=== PATIENT | female | born 1955 | race Caucasian/White ===

== ENCOUNTER → 2016-05-23 | Outpatient (CLI) | payer OTHER ==
--- NOTE | 2016-05-25 09:02 | MM ---
Reason for exam: screening (asymptomatic). Last mammogram was performed 1 year ago. History: Patient is postmenopausal. Took hormonal contraceptives for 1 year beginning at age 18. Physical Findings: A clinical breast exam by your physician is recommended on an annual basis and results should be correlated with mammographic findings. MG 3D Screening Mammo W/Cad Bilateral CC and MLO view(s) were taken. Prior study comparison: May 21, 2015, bilateral MG 3d screening mammo w/cad. April 25, 2014, bilateral MG screening mammo w CAD. There are scattered fibroglandular densities. No significant changes when compared with prior studies. ASSESSMENT: Benign, BI-RAD 2 RECOMMENDATION: Routine screening mammogram of both breasts in 1 year.
== END | disposition home or self-care (01) ==
LOC: RADMAMWWP 12:52
PROVIDERS: ATTEND Family Medicine
DX: Z12.31 Encounter for screening mammogram for malignant neoplasm of breast (principal)
CPT/HCPCS: 77063; G0202

== ENCOUNTER → 2017-05-24 | Outpatient (CLI) | payer OTHER ==
--- NOTE | 2017-05-24 10:13 | CTL ---
EXAMINATION TYPE: CT Low Dose Lung DATE OF EXAM ORDERED: 05/24/2017 HISTORY: Long-term tobacco use. Lung cancer screening CT DLP: 75.[address] CTDI: 2.3 mGy Automated exposure control for dose reduction was used. SCREENING VISIT: Initial study COMPARISON: CT chest November 13, 2013 TECHNIQUE: Low dose computed tomography scan was performed through the chest at 1 mm thick sections a nd reconstructed images in the coronal plane at [address] DIAGNOSTIC QUALITY: Satisfactory FINDINGS: LUNG NODULES: Present, detailed below: Stable 2 mm nodule just anterior to right major fissure axial image 113. Enlarging 4 x 3 mm nodule right lower lobe axial image 186 Stable 2 mm calcified nodule anteriorly left upper lobe axial image 60. No suspicious greater than 5 mm noncalcified nodules. LUNGS: COPD: Severity: Mild to Moderate Fibrosis: Severity: Mild scattered linear fibrosis Lymph nodes: Prominent but subcentimeter paratracheal and AP window lymph nodes. No greater than 1 cm adenopathy. Other findings: No additional significant findings seen BILATERAL PLEURAL SPACE: Effusion: None Calcification: None Thickening: None Pneumothorax: None HEART: Heart Size: Normal Coronary calcification: Moderate three-vessel blood post CABG changes with mediastinal clips and ster nal wires is noted Pericardial effusion: None OTHER FINDINGS: Upper abdomen: No significant abnormality is seen. Bony thorax: Moderate multilevel spurring in thoracic spine is seen. Supraclavicular region: No significant abnormality is seen. Other: No significant abnormality is seen. IMPRESSION: A few scattered small micronodules measuring up to 4 mm in size. FOLLOW UP CT CHEST RECOMMENDATION: Annual low-dose lung screening CT CT LUNG RAD: Lung-Rad 2 Benign Appearance or Behavior
--- NOTE | 2017-05-24 16:25 | BD ---
EXAMINATION TYPE: MG DEXA axial skeleton. DATE OF EXAM: 05/24/2017 COMPARISON: NONE CLINICAL HISTORY: 62-year-old female personal history of tobacco use Height: 5 FT 5 1/2 IN Weight: 190 FRAX RISK QUESTIONS: Alcohol (3 or more units per day): NO Family History (Parent hip fracture): NO Glucocorticoids (More than 3mos): NO (Ex: prednisone, prednisolone, methylprednisolone, dexamethasone, and hydrocortisone). History of Fracture in Adulthood: YES Secondary Osteoporosis: 1. Type 1 Diabetes: NO 2. Hyperthyroidism: NO 3. Menopause before 46: PART ST AGE 36 4. Malnutrition: NO 5. Chronic liver disease: NO Rheumatoid Arthritis: NO Current Tobacco Use: YES RISK FACTORS HISTORY OF: History of Wrist Fracture: RT WRIST When: 5 YEARS AGO Surgery to Spine/Hip(right/left)/Wrist (right/left): RT WRIST When: 5 YEARS AGO Active: NO Postmenopausal woman: PART [facility] AGE 36 Lost more than 2 inches in height since high school: YES MEDICATIONS: Additional Medications: NORCO, ASPIRIN, XANAX, Additional History: POOR HISTORIAN IN [facility] TO MEDICATIONS EXAM MEASUREMENTS: Bone mineral densitometry was performed using the [employer] System. Bone mineral density as measured about the Lumbar spine is: ----- L1-L4(G/cm2): 1.010 T Score Values are as follows: ----- L2: -1.4 ----- L3: -1.7 ----- L4: -1.4 ----- L1-L4: -1.4 BASELINE Bone mineral density about the R hip (g/cm2): 0.767 Bone mineral density about the L hip (g/cm2): 0.779 T Score values are as follows: -----R Neck: -2.0 -----L Neck: -1.9 -----R Total: -1.5 -----L Total: -1.9 BASELINE IMPRESSION: Osteopenia (T Score between -2.5 and -1 as noted by T score values There is slightly increased risk of fracture and the patient may be considered for treatment. Re-Screen 2-5 years. NOTE: T-SCORE=SD OF THE YOUNG ADULT MEAN.
--- NOTE | 2017-05-25 13:32 | MM ---
Reason for exam: screening (asymptomatic). Last mammogram was performed 1 year ago. History: Patient is postmenopausal. Took hormonal contraceptives for 1 year beginning at age 18. Physical Findings: A clinical breast exam by your physician is recommended on an annual basis and results should be correlated with mammographic findings. MG 3D Screening Mammo W/Cad Bilateral CC and MLO view(s) were taken. Prior study comparison: May 23, 2016, bilateral MG 3d screening mammo w/cad. May 21, 2015, bilateral MG 3d screening mammo w/cad. There are scattered fibroglandular densities. No significant changes when compared with prior studies. ASSESSMENT: Negative, BI-RAD 1 RECOMMENDATION: Routine screening mammogram of both breasts in 1 year.
== END | disposition home or self-care (01) ==
LOC: RADBDWWP 08:10
PROVIDERS: ATTEND Family Medicine
DX: Z12.31 Encounter for screening mammogram for malignant neoplasm of breast (principal); M85.80 Other specified disorders of bone density and structure, unspecified site; N95.1 Menopausal and female climacteric states; R91.8 Other nonspecific abnormal finding of lung field; Z87.891 Personal history of nicotine dependence
CPT/HCPCS: 77080; 77067; 77063; G0297

== ENCOUNTER → 2017-09-27 | Outpatient (CLI) | payer OTHER ==
--- NOTE | 2017-09-27 23:57 | MR ---
EXAMINATION TYPE: MR brain wo con DATE OF EXAM: 09/27/2017 COMPARISON: NONE HISTORY: Ataxia, Memory loss Standard multiplanar, multisequence MRI departmental protocol Multiplanar, multisequence images of the brain were acquired. Diffusion weighted imaging was performe d. FINDINGS: Ventricles and sulci appear normal for age. There is no mass effect nor midline shift. Ther e is no sign of intracranial hemorrhage. There is no evidence of cortical infarct. The brainstem appe ars normal. There are multiple scattered white matter high signal foci on the FLAIR and T2 images at the conley-white matter junction of both cerebral hemispheres. These are more notable in the left tempo ral lobe right parietal lobe. The total number is less than 25 and these measure up to 8 mm. There is no evidence of a sellar mass. IMPRESSION: Numerous white matter lesions. I would consider both demyelinating disease and chronic small vessel i schemia. No evidence of cortical infarct.
== END | disposition home or self-care (01) ==
LOC: RADMRIMAIN 19:43
PROVIDERS: ATTEND Psychiatry & Neurology Neurology
DX: G93.9 Disorder of brain, unspecified (principal); G56.03 Carpal tunnel syndrome, bilateral upper limbs
CPT/HCPCS: 70551

== ENCOUNTER → 2020-03-24 | Outpatient (CLI) | payer OTHER ==
--- NOTE | 2020-03-25 13:32 | MM ---
Reason for exam: screening (asymptomatic). Last mammogram was performed 2 years and 10 months ago. History: Patient is postmenopausal. Took hormonal contraceptives for 1 year beginning at age 18. Physical Findings: A clinical breast exam by your physician is recommended on an annual basis and results should be correlated with mammographic findings. MG 3D Screening Mammo W/Cad Bilateral CC and MLO view(s) were taken. Prior study comparison: May 24, 2017, bilateral MG 3d screening mammo w/cad. May 23, 2016, bilateral MG 3d screening mammo w/cad. There are scattered fibroglandular densities. No significant changes when compared with prior studies. ASSESSMENT: Negative, BI-RAD 1 RECOMMENDATION: Routine screening mammogram of both breasts in 1 year.
== END | disposition home or self-care (01) ==
LOC: RADMAMWWP 16:33
PROVIDERS: ATTEND Family Medicine
DX: Z12.31 Encounter for screening mammogram for malignant neoplasm of breast (principal)
CPT/HCPCS: 77063; 77067

== ENCOUNTER → 2021-06-11 | Outpatient (CLI) | payer MEDICARE, OTHER ==
--- NOTE | 2021-06-11 14:55 | BD ---
EXAMINATION TYPE: Axial Bone Density DATE OF EXAM: 06/11/2021 COMPARISON: 05/24/2017 CLINICAL HISTORY: Height: 65.2 IN Weight: 211 LBS FRAX RISK QUESTIONS: History of Fracture in Adulthood: RT WRIST FX AGE 58 Secondary Osteoporosis: 3. Menopause before 45: PARTIAL [facility] AGE 36 Current Tobacco Use: YES RISK FACTORS HISTORY OF: History of Wrist Fracture: RT WRIST AGE 58 Surgery to Wrist (right): YES AGE 58 Active: YES Diet low in dairy products/other sources of calcium: YES Postmenopausal woman: PARTIAL HYST AGE 36 Lost more than 2 inches in height since high school: YES 04/25" MEDICATIONS: Additional Medications: ASPIRIN, EXAM MEASUREMENTS: Bone mineral densitometry was performed using the [employer] System. Bone mineral density as measured about the Lumbar spine is: ----- L1-L4(G/cm2): 1.042 T Score Values are as follows: ----- L2: -0.7 ----- L3: -1.3 ----- L4: -1.9 ----- L1-L4: -1.1 Bone mineral density has: Increased 2.1% since study of: 05/24/2017 Bone mineral density about the R hip (g/cm2): 0.695 Bone mineral density about the L hip (g/cm2): 0.702 T Score values are as follows: -----R Neck: -2.5 -----L Neck: -2.4 -----R Total: -1.9 -----L Total: -2.1 Bone mineral density has: Decreased -4.5% since study of: IMPRESSION: Osteoporosis NOTE: T-SCORE=SD OF THE YOUNG ADULT MEAN.
--- NOTE | 2021-06-14 14:18 | MM ---
Reason for exam: screening (asymptomatic). Last mammogram was performed 1 year and 3 months ago. History: Patient is postmenopausal. Took hormonal contraceptives for 1 year beginning at age 18. Physical Findings: A clinical breast exam by your physician is recommended on an annual basis and results should be correlated with mammographic findings. MG 3D Screening Mammo W/Cad Bilateral CC and MLO view(s) were taken. Prior study comparison: March 24, 2020, bilateral MG 3d screening mammo w/cad. May 24, 2017, bilateral MG 3d screening mammo w/cad. There are scattered fibroglandular densities. No significant changes when compared with prior studies. ASSESSMENT: Negative, BI-RAD 1 RECOMMENDATION: Routine screening mammogram of both breasts in 1 year.
== END | disposition home or self-care (01) ==
LOC: RADBDWWP 13:35
PROVIDERS: ATTEND Family Medicine
DX: Z12.31 Encounter for screening mammogram for malignant neoplasm of breast (principal); M81.0 Age-related osteoporosis without current pathological fracture; Z78.0 Asymptomatic menopausal state
CPT/HCPCS: 77063; 77067; 77080

== ENCOUNTER → 2022-08-09 | Outpatient (CLI) | payer MEDICARE, OTHER ==
--- NOTE | 2022-08-10 11:55 | MR ---
EXAMINATION TYPE: MR brain wo/w con DATE OF EXAM: 08/09/2022 5:05 PM CLINICAL INDICATION:Female, 67 years old with history of R41.3 MEMORY LOSS; Memory loss COMPARISON: 09/27/2017 TECHNIQUE: Multi planar, multi sequence imaging was performed through the brain including: T1, T2, In version recovery, susceptibility weighted imaging and gradient echo imaging and Diffusion weighted im aging. The patient was then given intravenous contrast and multi planar, T1 fat-saturation images wer e obtained. IV Contrast: 10 cc Gadavist FINDINGS: Scattered white matter changes are seen throughout the brain may have mildly progressed from prior. E xample includes right periventricular lesion measuring 5.5 mm previously 2.6 mm more extensive white matter changes in the right temporal lobe best appreciated on series 501 image 17, 18, 19. The , vent ricular system, basal cisterns appear unremarkable. Diffusion-weighted imaging shows no evidence of r estricted diffusion to suggest acute/subacute infarct. Intracranial arterial flow voids are maintaine d. Midline structures show no abnormality. The susceptibility weighted images do not reveal any evide nce for micro-hemorrhage. After administration of gadolinium, no abnormal enhancement is seen. The bone marrow signal is within normal limits. Paranasal sinuses and mastoid air cells: No significant paranasal sinus disease. Visualized orbits: Orbital contents are intact. IMPRESSION: 1. No evidence of intracranial mass, acute/subacute infarct, or abnormal enhancement. 2. Progression of nonspecific white matter changes, no evidence of active demyelination. Likely relat ed to small vessel ischemic disease
== END | disposition home or self-care (01) ==
LOC: RADMRIMAIN 16:08
PROVIDERS: ATTEND Psychiatry & Neurology Neurology
DX: R90.82 White matter disease, unspecified (principal); R41.3 Other amnesia
CPT/HCPCS: 70553; A9585

== ENCOUNTER → 2022-08-11 | Outpatient (CLI) | payer MEDICARE, OTHER ==
[2022-08-11 21:47] LABS: T4, Free (Free Thyroxine) 1.2 ng/dL (0.800-1.800)
== END | disposition home or self-care (01) ==
LOC: LABWHC1 13:22
PROVIDERS: ATTEND Psychiatry & Neurology Neurology
DX: R41.3 Other amnesia (principal); Z79.899 Other long term (current) drug therapy
CPT/HCPCS: 36415; 82306; 82607; 84439; 84443

== ENCOUNTER → 2023-06-02 | Outpatient (CLI) | payer MEDICARE, OTHER ==
[2023-06-02 18:52] LABS: ALT 21 U/L (8-44); AST 25 U/L (13-35); Chol/HDL Ratio 4.68 Ratio; LDL Cholesterol,Calculated 150.3 mg/dL (0.0-131.0)
== END | disposition home or self-care (01) ==
LOC: LABWHC1 13:07
PROVIDERS: ATTEND Internal Medicine
DX: E78.2 Mixed hyperlipidemia (principal)
CPT/HCPCS: 36415; 80061; 84450; 84460

== ENCOUNTER 2023-06-05 08:40 | Day surgery (SDC) | payer MEDICARE, OTHER ==
[2023-06-02 09:00] VITALS: BMI 31.9
[~2023-06-05 08:40] MED LIST: ALPRAZolam 0.25 MG TAB PO PRN; ALPRAZolam 0.5 MG TAB PO PRN; ASPIRIN 325 MG TAB PO STA; HEPARIN SODIUM,PORCINE (1 ML) 2,500 UNIT in SODIUM CHLORIDE 0.9% 250 ML IRRIGATION PRN; HEPARIN SODIUM,PORCINE 10,000 UNIT in SODIUM CHLORIDE 0.9% 1,000 ML IRRIGATION PRN; NITROGLYCERIN SL TABS 0.4 MG TAB SUBLINGUAL PRN; SODIUM CHLORIDE 0.9% 1,000 ML in EMPTY BAG 1 BAG IV SCH
[2023-06-05] MEDS: SODIUM CHLORIDE 0.9% 1,000 ML IV ONE (09:04)
[2023-06-05 09:33] VITALS: RESP 16; TEMP 98.9
[2023-06-05 09:34] LABS: Basophils % (A) 1 %; Eosinophils # (A) 0.1 k/uL (0-0.7); Eosinophils % (A) 1 %; HCT 45.7 % (34.0-46.0); HGB 14.6 gm/dL (11.4-16.0); Lymphocytes # (A) 1.6 k/uL (1.0-4.8); Lymphocytes % (A) 24 %; MCH 29.6 pg (25.0-35.0); MCV 92.3 fL (80.0-100.0); Mean Platelet Volume 7.2; Monocytes # (A) 0.4 k/uL (0-1.0); Monocytes % (A) 6 %; Neutrophils # (A) 4.4 k/uL (1.3-7.7); Neutrophils % (A) 66 %; Platelet Count 221 k/uL (150-450); RBC 4.95 m/uL (3.80-5.40); RDW 13.7 % (11.5-15.5); WBC 6.6 k/uL (3.8-10.6)
[2023-06-05 10:17] LABS: African American GFR (CKD) >90 (>60 ml/min/1.73 sqM); Anion Gap 5 mmol/L; Blood Urea Nitrogen 12 mg/dL (7-17); Calcium 8.4 mg/dL (8.4-10.2); Carbon Dioxide 29 mmol/L (22-30); Chloride 105 mmol/L (98-107); Glucose 92 mg/dL (74-99); Non-African American GFR(CKD) 89 (>60 ml/min/1.73 sqM); Sodium 139 mmol/L (137-145)
[2023-06-05] MEDS ORDERED: fentaNYL (PF) 50 MCG/ML 2 ML AMP ONE (10:44)
[2023-06-05] MEDS ORDERED: LIDOCAINE 1% INJ 10MG/ML (20 ML MDV) ONE (10:44)
[2023-06-05] MEDS ORDERED: VERAPAMIL 2.5 MG/ML 2 ML AMP ONE (10:44)
[2023-06-05] MEDS: fentaNYL (PF) 50 MCG/ML 2 ML AMP IVP ONE (10:53)
[2023-06-05] MEDS: MIDAZOLAM 2 MG/2 ML VIAL IVP ONE (10:53)
[2023-06-05] MEDS: LIDOCAINE 1% INJ 10MG/ML (20 ML MDV) SQ ONE (10:55)
[2023-06-05] MEDS: VERAPAMIL SYRINGE (5 MG/10 ML) INTRAARTER ONE (10:57)
[2023-06-05] MEDS: HEPARIN SODIUM 1,000 UN/ML (10ML VL) IVP ONE (11:00)
[2023-06-05] MEDS: IOPAMIDOL-370 100ML BTL INJ ONE (11:09)
--- NOTE | 2023-06-05 11:21 | P.CARDCATH ---
Description of Procedure: PROCEDURES PERFORMED: Left heart catheterization, bilateral coronary angiography, CAMPOVERDE to LAD angiography, ultrasound guided arterial access INDICATION: Abnormal stress test CONSENT:I have discussed the risks, benefits and alternative therapies for the above-mentioned procedure and for both sedation/analgesia as well as necessary b lood product administration, if indicated, as they pertain to this patient. The patient has indicated understanding and acceptance of the risks and procedures discussed. PROCEDURE: After the risks, benefits and alternatives of the above mentioned procedure explained in detail with the patient, informed consent was obtained. Patient was taken to the catheterization lab and prepped and draped in usual fashion. Ultrasound guidance was used to assess for arterial access. 1% lidocaine was used to anesthetize the left radial artery. A 6-Bangladeshi sheath was placed in the left radial artery using modified Seldinger technique and ultrasound guidance. Left coronary angiography was performed with a 5-Bangladeshi JL 4.0 catheter and right coronary angiography was performed with a 5-Bangladeshi FR4 catheter in various views. A 5-Bangladeshi FR4 catheter was inserted into the left ventricle and pressure measurements were obtained. CAMPOVERDE to LAD angiography was performed with a 5-Bangladeshi SR 4 catheter. The left radial sheath was removed and a TR band was placed with hemostasis achieved. The patient tolerated the procedure well. Patient was transported back to the post catheterization holding area in stable condition. Conscious Sedation: Patient was monitored under the direct supervision of myself for conscious sedation using Versed and fentanyl for a total duration of 15 minutes HEMODYNAMICS: Aorta: 137/68 ANDREW: 134/2, LVEDP 5 SELECTIVE CORONARY ARTERIOGRAPHY: LEFT MAIN: The left main is a large caliber vessel which bifurcates into the LAD and circumflex. There is no significant stenosis. LEFT ANTERIOR DESCENDING CORONARY ARTERY: LAD is a large caliber vessel which wraps around to the apex. There proximal LAD 10% stenosis then leads to a small to moderate caliber diagonal 1 branch with 20th 30% diagonal 1 stenosis. The mid LAD has a 100% stenosis after the diagonal branch takeoff. LEFT CIRCUMFLEX CORONARY ARTERY: Left circumflex is a moderate caliber vessel with mild 20-30% stenosis. RIGHT CORONARY ARTERY: The right coronary artery is a large caliber vessel which gives off a PDA and PLV branch and is the dominant vessel. There is diffuse mild 20-30% stenosis CAMPOVERDE to LAD: Widely patent FINAL IMPRESSION: 1. CAD as described above with 100% mid LAD, 20-30% circumflex, 20-30% RCA stenosis 2. Patent CAMPOVERDE to LAD 3. Low normal left sided filling pressures PLAN: 1. Aggressive risk factor modification per most recent ACC/AHA guidelines. 2. Consider decreasing antianginal medications. Consider lowering diuretics with a low normal LVEDP
[2023-06-05 17:00] VITALS: BP 107/65; PULSE 58
== END 2023-06-05 14:55 | disposition home or self-care (01) ==
LOC: CATHCVL 08:40
PROVIDERS: ATTEND Internal Medicine
DX: I25.10 Atherosclerotic heart disease of native coronary artery without angina pectoris (principal); E78.5 Hyperlipidemia, unspecified; Z88.1 Allergy status to other antibiotic agents; Z88.0 Allergy status to penicillin; Z88.8 Allergy status to other drugs, medicaments and biological substances; Z87.891 Personal history of nicotine dependence; Z79.82 Long term (current) use of aspirin; Z79.899 Other long term (current) drug therapy
CPT/HCPCS: 93459; 76937; 80048; 85025; 99152; C1769; C1894; J2250; J2001; J3010; J1644; Q9967

== ENCOUNTER → 2023-07-13 | Outpatient (CLI) | payer MEDICARE, OTHER ==
--- NOTE | 2023-07-14 12:50 | BD ---
EXAMINATION TYPE: Axial Bone Density DATE OF EXAM: 07/13/2023 CLINICAL HISTORY: 68 years old Female. ICD-10 CODE: M81.0 OSTEOPOROSIS Nuclear Medicine Study in the last 2 weeks: Barium Study in the last week: : Height: Weight: FRAX RISK QUESTIONS: History of Fracture in Adulthood: yes Secondary Osteoporosis: 3. Menopause before 45: yes Current Tobacco Use: yes RISK FACTORS HISTORY OF: History of Wrist Fracture: yes When: age 58 Surgery to Spine/Hip(right/left)/Wrist (right/left): yes, right wrist MEDICATIONS: EXAM MEASUREMENTS: Bone mineral densitometry was performed using the [employer] System. Bone mineral density as measured about the Lumbar spine is: ----- L1-L4(G/cm2): 1.058 T Score Values are as follows: ----- L1: -0.7 ----- L2: -0.7 ----- L3: -1.1 ----- L4: -1.5 ----- L1-L4: -1.0 Z Score Values are as follows: ----- L1: -0.2 ----- L2: -0.2 ----- L3: -0.6 ----- L4: -1.0 ----- L1-L4: -0.5 Bone mineral density has: Increased 1.5% since study of: 06-11-21 Bone mineral density about the R hip (g/cm2): 0.775 Bone mineral density about the L hip (g/cm2): 0.727 T Score values are as follows: -----R Neck: -2.3 -----L Neck: -2.8 -----R Total: -1.8 -----L Total: -2.2 Z Score values are as follows: -----R Neck: -1.5 -----L Neck: -2.0 -----R Total: -1.3 -----L Total: -1.7 Bone mineral density has: Decreased -0.8% since study of: 06-11-21 FRAX%s: The graph provided illustrates a 25.5% chance for a major osteoporotic fx and a 10.1% chance for the hips probability for fx in 10 years time. IMPRESSION: Osteoporosis (T Score less than -2.5). There is increased fracture risk and therapy is usually indicated based on age. Re-Screen 1-2 years. NOTE: T-SCORE=SD OF THE YOUNG ADULT MEAN.
--- NOTE | 2023-07-14 13:14 | MM ---
Reason for Exam: Screening (asymptomatic). Last mammogram was performed 1 year(s) and 1 month(s) ago. Patient History: Menarche at age 13. First Full-Term at age 18. Hysterectomy at age 36. Postmenopausal. Patient has history of breast feeding. Hormonal Contraceptives, starting at age 18 for 1 year. Risk Values: Lola 5 year model risk: 1.2%. NCI Lifetime model risk: 4.2%. Prior Study Comparison: 03/24/2020 Bilateral Screening Mammogram, [facility]. 06/11/2021 Bilateral Screening Mammogram, [facility]. 06/13/2022 Bilateral MG 3D screening mammo w/cad, [facility]. Tissue Density: The breasts are almost entirely fatty. Findings: Analyzed By CAD. Right breast: There is no suspicious group of microcalcifications or new suspicious mass. Left breast: There is no suspicious group of microcalcifications or new suspicious mass. There is no suspicious group of microcalcifications or new suspicious mass. Overall Assessment: Negative, BI-RAD 1 Management: Screening Mammogram of both breasts in [address] [facility] will attempt to contact patient to return for supplemental views and ultrasound if indicated. Patient should continue monthly self-breast exams. A clinical breast exam by your physician is recommended on an annual basis. This exam should not preclude additional follow-up of suspicious palpable abnormalities. Note on Lola scores and lifetime risk: 1. A Lola score greater than 3% is considered moderate risk. If this is the case, consider specialist referral to assess eligibility for a risk reducing agent. 2. If overall lifetime risk for the development of breast cancer is 20% or higher, the patient may qualify for future screening with alternating mammogram and breast MRI. Electronically signed and approved by: Ric Gilliland DO
== END | disposition home or self-care (01) ==
LOC: RADBDWWP 11:14
PROVIDERS: ATTEND Family Medicine
DX: Z12.31 Encounter for screening mammogram for malignant neoplasm of breast (principal); M85.89 Other specified disorders of bone density and structure, multiple sites; M81.0 Age-related osteoporosis without current pathological fracture; Z78.0 Asymptomatic menopausal state
CPT/HCPCS: 77063; 77067; 77080

== ENCOUNTER → 2023-07-18 | Outpatient (CLI) | payer MEDICARE, OTHER ==
[2023-07-18 18:17] LABS: Basophils # (A) 0.04 X 10*3/uL (0.00-0.10); Basophils % (A) 0.7 %; Eosinophils # (A) 0.09 X 10*3/uL (0.04-0.35); Eosinophils % (A) 1.5 %; HCT 42.6 % (37.2-46.3); HGB 13.5 g/dL (12.0-15.0); Lymphocytes # (A) 1.77 X 10*3/uL (0.90-5.00); Lymphocytes % (A) 30.1 %; MCH 29.3 pg (27.0-32.0); MCHC 31.7 g/dL (32.0-37.0); MCV 92.6 FL (80.0-97.0); Mean Platelet Volume 9.5 FL (9.5-12.2); Monocytes # (A) 0.47 X 10*3/uL (0.20-1.00); NRBC Per 100 WBC 0 X 10*3/uL (0.00-0.01); Neutrophils % (A) 59.4 %; Platelet Count 227 X 10*3/uL (140-440); RDW 14.4 % (11.5-14.5); WBC 5.89 X 10*3/uL (4.50-10.00)
[2023-07-18 18:42] LABS: ALT 10 U/L (8-44); AST 12 U/L (13-35); Alkaline Phosphatase 86 U/L (41-126); BUN/Creat Ratio 17.14 Ratio (12.00-20.00); Calcium 8.9 mg/dL (8.7-10.3); Carbon Dioxide 29.6 mmol/L (21.6-31.8); Chloride 99 mmol/L (96-109); Chol/HDL Ratio 4.11 Ratio; Glucose 89 mg/dL (70-110); LDL Cholesterol,Calculated 122.1 mg/dL (0.0-131.0); Potassium 4.4 mmol/L (3.5-5.5); Sodium 139 mmol/L (135-145); T4, Free (Free Thyroxine) 1.18 ng/dL (0.80-1.80); Total Bilirubin 0.2 mg/dL (0.3-1.2)
== END | disposition home or self-care (01) ==
LOC: LABWHC1 14:19
PROVIDERS: ATTEND Family Medicine
DX: Z00.00 Encounter for general adult medical examination without abnormal findings (principal)
CPT/HCPCS: 36415; 80053; 80061; 84439; 84443; 85025

== ENCOUNTER 2024-02-06 10:21 | Day surgery (SDC) | payer MEDICARE, OTHER ==
[2024-02-06] MEDS ORDERED: LACTATED RINGERS 1,000 ML IV SCH (10:32)
[2024-02-06 10:55] VITALS: TEMP 98.2
[2024-02-06] MEDS: LACTATED RINGERS 1,000 ML IV SCH (11:00)
[2024-02-06] MEDS: IPRATROPIUM-ALBUTEROL 3 ML NEB INHALATION STA (11:08)
[2024-02-06] MEDS ORDERED: PROPOFOL 10 MG/ML 20 ML VIAL IV ONE (12:06)
--- NOTE | 2024-02-06 12:38 | P.PCN ---
Date of Procedure: 02/06/24 Procedure(s) Performed: BRIEF HISTORY: Patient is a 68-year-old pleasant white female scheduled for an elective colonoscopy as a part of for colon cancer. PROCEDURE PERFORMED: Colonoscopy with biopsy. PREOPERATIVE DIAGNOSIS: Screening for colon cancer. IV sedation per Anesthesia. PROCEDURE: After informed consent was obtained, the patient, was brought into the endoscopy unit. IV sedation was administered by Anesthesia under continuous monitoring. Digital rectal examination was normal. Initially the Olympus CF-160 flexible video colonoscope was then inserted in the rectum, gradually advanced into the sigmoid colon and further advancement was not possible. The scope was removed and a. Colonoscopy then introduced into the rectum and was gradually advanced into the cecum without any difficulty. Careful examination was performed as the scope was gradually being withdrawn. Ileocecal valve and the appendiceal orifice were visualized and appeared normal. Prep was excellent. Mucosa of the cecum, ascending colon, transverse colon, descending colon, sigmoid colon, and rectum appeared normal. Scattered sigmoid diverticulosis. There were 2 small 3 mm polyps in the distal rectum that were removed by cold biopsy. Retroflexion was performed in the rectum and no lesions were seen. The patient tolerated the procedure well. IMPRESSION: 3 mm x 2 distal rectal polyp status post cold biopsy Scattered sigmoid diverticulosis RECOMMENDATIONS: Findings of this examination were discussed with the patient as well as the family.. Advised to follow-up with the biopsy results. If the biopsy reveals adenoma she can have repeat colonoscopy in 5 years
[2024-02-06 12:43] VITALS: RESP 16
[2024-02-06 13:01] VITALS: BP 157/81; PULSE 58
== END 2024-02-06 13:24 | disposition home or self-care (01) ==
LOC: ORWHC2ENDO 10:21
PROVIDERS: ATTEND Internal Medicine Gastroenterology
DX: Z12.11 Encounter for screening for malignant neoplasm of colon
CPT/HCPCS: 45380; 88305

== ENCOUNTER → 2024-07-10 | Outpatient (CLI) | payer MEDICARE, OTHER ==
[2024-07-10 13:24] LABS: ALT 11 U/L (4-34); AST 21 U/L (14-36); African American GFR (CKD) >90 (>60 ml/min/1.73 sqM); Albumin 3.8 g/dL (3.5-5.0); Albumin/Globulin Ratio 1.5; Alkaline Phosphatase 84 U/L (38-126); Anion Gap 4 mmol/L; Blood Urea Nitrogen 11 mg/dL (7-17); Carbon Dioxide 35 mmol/L (22-30); Chloride 100 mmol/L (98-107); Globulin 2.5 g/dL; Glucose 93 mg/dL (74-99); Non-African American GFR(CKD) 87 (>60 ml/min/1.73 sqM); Sodium 139 mmol/L (137-145); Total Bilirubin 0.5 mg/dL (0.2-1.3); Total Protein 6.3 g/dL (6.3-8.2)
--- NOTE | 2024-07-10 15:21 | CT ---
EXAMINATION TYPE: CT abdomen pelvis w con CT DLP: 1556.6 mGycm, Automated exposure control for dose reduction was used. DATE OF EXAM: 07/10/2024 3:03 PM COMPARISON: CT Abdomen 12/27/2012, CT abdomen and pelvis 02/26/2010 CLINICAL INDICATION:Female, 69 years old with history of K56.609 UNSPEC INESTINAL OBSTRUCTION; abdomi nal/pelvic pain and swelling TECHNIQUE: Standard CT of the abdomen and pelvis following the administration of 100 cc of Isovue 3 00 IV contrast material and oral contrast. Coronal and sagittal reformats were performed. FINDINGS: LOWER CHEST: No significant findings. ABDOMEN LIVER: Unremarkable GALLBLADDER AND BILE DUCTS: The gallbladder is surgically absent. No biliary ductal dilatation. PANCREAS: Unremarkable. SPLEEN: Unremarkable. ADRENAL GLANDS: Unremarkable. KIDNEYS AND URETERS: No evidence of hydronephrosis or renal calculus. The kidneys enhance symmetrical ly. Contrast is demonstrated within both collecting systems on the delayed phase. PELVIS BLADDER: Unremarkable REPRODUCTIVE: The uterus is surgically absent. ABDOMEN & PELVIS STOMACH AND BOWEL: Couple of subcentimeter suggested lipomas within the duodenum.Scattered distal col onic diverticulosis without evidence for acute diverticulitis. No focal bowel wall thickening or surr ounding inflammatory changes. The appendix is within normal limits. Enteric contrast reaches the ileo cecal junction No evidence of bowel obstruction. PERITONEUM: No evidence of pneumoperitoneum or free fluid. VASCULATURE: Mild atherosclerotic calcifications are present throughout the abdominal aorta and its b ranches. Infrarenal abdominal aortic aneurysm measuring 3.6 x 3.1 cm (series 3, image 42). MUSCULOSKELETAL: No acute osseous abnormalities. Grade 1 anterolisthesis of L4 on L5 without evidence of pars defect. Mild multilevel degenerative disease and facet arthropathy. LYMPH NODES: No evidence for lymphadenopathy. SOFT TISSUE/ABDOMINAL WALL: Fat filled right periumbilical hernia redemonstrated with defect measurin g up to 1.9 cm. IMPRESSION: 1. No CT evidence for acute abdominal/pelvic process. 2. Colonic diverticulosis without evidence for acute diverticulitis. 3. Infrarenal abdominal aortic aneurysm measuring up to 3.6 cm. 4. Fat filled right periumbilical hernia redemonstrated. [facility], , 07/10/2024 3:19 PM
== END | disposition home or self-care (01) ==
LOC: RADCTMAIN 12:26
PROVIDERS: ATTEND Surgery Plastic and Reconstructive Surgery
DX: K57.30 Diverticulosis of large intestine without perforation or abscess without bleeding (principal); I71.43 Infrarenal abdominal aortic aneurysm, without rupture; K42.9 Umbilical hernia without obstruction or gangrene
CPT/HCPCS: 80053; 74177; 36415; Q9967

== ENCOUNTER 2024-11-13 08:37 | Day surgery (SDC) | payer MEDICARE, OTHER ==
[2024-11-11 15:17] VITALS: BMI 30.4
--- NOTE | 2024-11-13 08:12 | P.GSHP ---
History of Present Illness H&P Date: 11/13/24 CHIEF COMPLAINT: GERD and dysphagia HISTORY OF PRESENT ILLNESS: The patient is a 69-year-old female who presents reports gastroesophageal reflux disease and dysphagia. Upper endoscopy was offered for further evaluation and management. PAST MEDICAL HISTORY: Please see list. PAST SURGICAL HISTORY: Please see list. MEDICATIONS: Please see list. ALLERGIES: Please see list. SOCIAL HISTORY: No illicit drug use FAMILY HISTORY: No reports of Crohn disease or ulcerative colitis. REVIEW OF ORGAN SYSTEMS: CONSTITUTIONAL: No reports of fevers or chills. GI: Denies any blood in stools or constipation. PHYSICAL EXAM: VITAL SIGNS: Stable GENERAL: Well-developed and pleasant in no acute distress. HEENT: No scleral icterus. Extraocular movements grossly intact. Moist buccal mucosa. NECK: Supple without lymphadenopathy. CHEST: Unlabored respirations. Equal bilateral excursions. CARDIOVASCULAR: Regular rate and rhythm. Distal 2+ pulses. ABDOMEN: Soft, nondistended. MUSCULOSKELETAL: No clubbing, cyanosis, or edema. ASSESSMENT: 1. Gastroesophageal reflux disease 2. Dysphagia PLAN: 1. Recommend proceeding with an upper endoscopy Past Medical History Past Medical History: Coronary Artery Disease (CAD), COPD, GERD/Reflux, Hyp erlipidemia, Hypertension, Memory Impairment, Myocardial Infarction (MD), Osteoarthritis (OA) Additional Past Medical History / Comment(s): Intermittent bloating, with pain that make sit hard to breath for last 2 yrs. Emphysema. Right shoulder torn rotator cuff, lower back and left knee pain. 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 Current skin irritation to left groin area. Last Myocardial Infarction Date:: 2005 History of Any Multi-Drug Resistant Organisms: None Reported Past Surgical History: Adenoidectomy, Section, Cholecystectomy, Coronary Bypass/CABG, Heart Catheterization, Hernia Repair, Hysterectomy, Tonsillectomy Additional Past Surgical History / Comment(s): CABG-2006, colonoscopy, cataracts removed, hemorrhoidectomy. Past Anesthesia/Blood Transfusion Reactions: No Reported Reaction, Family History of Problems w/ Anesthesia Additional Past Anesthesia/Blood Transfusion Reaction / Comment(s): Daughters PONV. Past Psychological History: Anxiety Smoking Status: Current every day smoker Past Alcohol Use History: None Reported Additional Past Alcohol Use History / Comment(s): OFF AND ON SMOKER SINCE AGE 13, 1/2 to 1 PPD. Past Drug Use History: None Reported - Past Family History Father Family Medical History: No Reported History Medications and Allergies Home Medications Medication Instructions Recorded Confirmed Type ALPRAZolam [Xanax] 0.25 mg PO TID PRN 08/28/13 11/11/24 History Aspirin 325 mg PO DAILY PRN 08/28/13 11/11/24 History Albuterol Sulfate [Albuterol 1 puff INHALATION QID PRN 05/19/23 11/11/24 History Sulfate Hfa] HYDROcodone/APAP 7.5-325MG [Ratt[place] 1 tab PO Q6HR PRN 06/02/23 11/11/24 History 7.5-325] Sertraline [Zoloft] 50 mg PO DAILY PRN 06/02/23 11/11/24 History Albuterol Nebulized [Ventolin 2.5 mg INHALATION TID PRN 11/11/24 11/11/24 History Nebulized] Allergies Allergy/AdvReac Type Severity Reaction Status Date / Time adhesive AdvReac Itching Verified 11/11/24 14:43 bupropion [From Wellbutrin] AdvReac feelings Verified 11/11/24 14:43 of anger,rage, wanting lash out [id number] Reductase AdvReac SEVERE PAIN Verified 11/11/24 14:43 Inhibitor
[2024-11-13] MEDS ORDERED: LACTATED RINGERS 1,000 ML IV SCH (09:01)
[2024-11-13] MEDS ORDERED: LIDOCAINE 1% (10MG/ML) FOR IV START INTRADERMA PRN (09:01)
[2024-11-13 09:11] VITALS: RESP 16; TEMP 97.4
[2024-11-13] MEDS: IV FLUID CONTINUATION 1,000 ML IV ONE (09:12)
[2024-11-13] MEDS: LACTATED RINGERS 1,000 ML IV SCH (09:22)
[2024-11-13] MEDS ORDERED: PROPOFOL 10 MG/ML 20 ML VIAL IV ONE (09:59)
[2024-11-13] MEDS ORDERED: LIDOCAINE 1% INJ 10MG/ML (20 ML MDV) ONE (09:59)
[2024-11-13] MEDS: LACTATED RINGERS 1,000 ML IV ONE (10:09)
--- NOTE | 2024-11-13 10:22 | P.PCN ---
Date of Procedure: 11/13/24 Description of Procedure: PREOPERATIVE DIAGNOSIS: Hiatal hernia Gastroesophageal reflux disease. Epigastric abdominal pain POSTOPERATIVE DIAGNOSIS: Duodenitis Gastritis. OPERATION: Esophagogastroduodenoscopy with cold forceps biopsies along esophagus, antrum and duodenum SURGEON: Ellie Quinn MD ANESTHESIA: MAC. INDICATIONS: The patient is a 69-year-old female who presents with hiatal hernia and epigastric abdominal pain. Benefits and risks of the procedure were described. Informed consent was obtained. DESCRIPTION: The patient was brought into the endoscopy suite and laid in the left lateral decubitus position. An Olympus gastroscope was passed along the posterior oropharynx down to the distal esophagus where the squamocolumnar junction was encountered at 40 cm from the incisors. The stomach was entered and no bile reflux was found. Additional findings are listed below. Biopsies with cold forceps were obtained of the antrum. The first through third portion of the duodenum was examined. Retroflexion of the scope confirmed Hill grade 2 lower esophageal valve. The squamocolumnar junction demonstrated LA grade A erosive esophagitis. The stomach was desufflated. The patient tolerated the procedure well. FINDINGS: Squamocolumnar junction 40 cm from the incisors. Diaphragmatic hiatus at 40 cm. Hill grade 2 lower esophageal valve. LA grade A erosive esophagitis. Biopsies obtained Biopsies obtained of the duodenum with duodenitis Chronic gastritis with biopsies obtained. RECOMMENDATIONS: Upper endoscopy as needed. Plan - Discharge Summary Discharge Rx Participant: No New Discharge Prescriptions: New Omeprazole [PriLOSEC] 40 mg PO DAILY #14 cap Continue Aspirin 325 mg PO DAILY PRN PRN Reason: Headache ALPRAZolam [Xanax] 0.25 mg PO TID PRN PRN Reason: Anxiety Sertraline [Zoloft] 50 mg PO DAILY PRN PRN Reason: Anxiety HYDROcodone/APAP 7.5-325MG [[place] 7.5-325] 1 tab PO Q6HR PRN PRN Reason: Pain Albuterol Nebulized [Ventolin Nebulized] 2.5 mg INHALATION TID PRN PRN Reason: Shortness Of Breath Albuterol Sulfate [Albuterol Sulfate Hfa] 1 puff INHALATION QID PRN PRN Reason: Shortness Of Breath Discharge Medication List ALPRAZolam [Xanax] 0.25 mg PO TID PRN 08/28/13 [History] Aspirin 325 mg PO DAILY PRN 08/28/13 [History] Albuterol Sulfate [Albuterol Sulfate Hfa] 1 puff INHALATION QID PRN 05/19/23 [History] HYDROcodone/APAP 7.5-325MG [[place] 7.5-325] 1 tab PO Q6HR PRN 06/02/23 [History] Sertraline [Zoloft] 50 mg PO DAILY PRN 06/02/23 [History] Albuterol Nebulized [Ventolin Nebulized] 2.5 mg INHALATION TID PRN 11/11/24 [History] Omeprazole [PriLOSEC] 40 mg PO DAILY #14 cap 11/13/24 [Rx] Follow up Appointment(s)/Referral(s): Ellie Quinn MD [STAFF PHYSICIAN] - 12/10/24 10:30 am Patient Instructions/Handouts: Gastritis (DC), Duodenitis (DC) Activity/Diet/Wound Care/Special Instructions: Start new medication for 2 weeks Discharge Disposition: HOME SELF-CARE
[2024-11-13 10:38] VITALS: BP 160/72; PULSE 63
== END 2024-11-13 11:02 | disposition home or self-care (01) ==
LOC: ORWHC2ENDO 08:37
PROVIDERS: ATTEND Surgery Plastic and Reconstructive Surgery
DX: K31.89 Other diseases of stomach and duodenum (principal); K21.00 Gastro-esophageal reflux disease with esophagitis, without bleeding; K29.80 Duodenitis without bleeding; K29.50 Unspecified chronic gastritis without bleeding; K44.9 Diaphragmatic hernia without obstruction or gangrene; K22.89 Other specified disease of esophagus; K22.10 Ulcer of esophagus without bleeding; I25.10 Atherosclerotic heart disease of native coronary artery without angina pectoris; E78.5 Hyperlipidemia, unspecified; I10 Essential (primary) hypertension; I25.2 Old myocardial infarction; F41.9 Anxiety disorder, unspecified; M19.90 Unspecified osteoarthritis, unspecified site; F17.210 Nicotine dependence, cigarettes, uncomplicated; F32.A Depression, unspecified; J43.9 Emphysema, unspecified; Z95.1 Presence of aortocoronary bypass graft; Z98.49 Cataract extraction status, unspecified eye; Z90.49 Acquired absence of other specified parts of digestive tract; Z90.89 Acquired absence of other organs; Z98.890 Other specified postprocedural states; Z90.710 Acquired absence of both cervix and uterus; Z79.82 Long term (current) use of aspirin; Z79.899 Other long term (current) drug therapy; Z88.8 Allergy status to other drugs, medicaments and biological substances; Z91.09 Other allergy status, other than to drugs and biological substances
CPT/HCPCS: 43239; J2003; J2704; 88305